=== PATIENT | male | born 1955 | race Hispanic/Latino ===

== ENCOUNTER 2018-02-17 07:41 | Observation (INO) | payer OTHER ==
[2018-02-17] MEDS ORDERED: SODIUM CHLORIDE FLUSH SYRINGE 10 ML IV PRN (11:31)
--- NOTE | 2018-02-17 11:44 | History and Physical Report ---
History of Present Illness Date of examination: 02/17/18 Date of admission: 02/17/18 08:21 Chief complaint: and pain History of present illness: 62 yo M with hx of DM presents to hospital as direct admission. The patient's PCP is Dr. Meyers who referred the patient to surgical services. The patient has been having difficulty moving his bowels and a fullness in his lower abdomen for several days. He also noted some blood in his urine and this prompted him to see his PCP. The patient had outpatient labs and a CT A/P. WBC was normal bit CT A/P showed a 4cm diverticular abscess. The patient states he has not had f/c, cp, sob, n/v. He has been having a few loose BMs since CT scan. His last cscope was in 2011 which was normal. Past History Past Medical History: diabetes Past Surgical History: Other (spinal fusion) Social history: no significant social history Family history: other (DM 1 in biological mother) Medications and Allergies Allergies Allergy/AdvReac Type Severity Reaction Status Date / Time No Known Allergies Allergy Unverified 02/17/18 08:21 Active Meds: Active Medications Acetaminophen (Tylenol) 650 mg PO Q4H PRN PRN Reason: Pain MILD(1-3)/Fever >100.5/DOLYE Dextrose/Sodium Chloride (D5/0.45ns) 1,000 mls @ 75 mls/hr IV DIRECT YOUNG Levofloxacin/Dextrose (Levaquin 500mg/100ml) 500 mg in 100 mls @ 100 mls/hr IV Q24HR YOUNG; Protocol Metronidazole (Flagyl 500 Mg/100 Ml) 500 mg in 100 mls @ 100 mls/hr IV Q8HR YOUNG Ondansetron HCl (Zofran) 4 mg IV Q8H PRN PRN Reason: Nausea And Vomiting Sodium Chloride (Sodium Chloride Flush Syringe 10 Ml) 10 ml IV BID YOUNG Sodium Chloride (Sodium Chloride Flush Syringe 10 Ml) 10 ml IV PRN PRN PRN Reason: LINE FLUSH Review of Systems All systems: negative (10 point ROS performed and negative except for that listed in HPI) Exam Vital Signs Pulse BP Pulse Ox 89 123/75 95 02/17/18 09:33 02/17/18 09:33 02/17/18 09:33 Narrative exam: Gen: AAOx3. NAD ENT: no scleral icterus or conjunctival pallor CV: S1, S2+ Resp: CTAB, no w/r/r Abd: soft, NT, ND Ext: no c/c/e Assessment and Plan 62 yo M with intraabdominal abscess secondary to diverticulitis PLan: 1. NPO - pt has been NPO since MN last night 2. gently IVF 3. strict glucose control, Accuchecks qACHS once pt is on a diet 4. IV abx - levaquin and flagyl 5. stat INR 6. IR consult - d/w Dr. Brennan who will review imaging and evaluate pt for CT guided drainage of abscess 7. nutrition consult 8. OOB/ambulate
[2018-02-17] MEDS ORDERED: D5/0.45NS 1,000 ML IV SCH (12:00)
[2018-02-17 12:29] LABS: INR 0.9 (0.87-1.13)
[2018-02-17] MEDS ORDERED: VERSED IV NR (14:00)
[2018-02-17] MEDS ORDERED: SUBLIMAZE IV NR (14:00)
--- NOTE | 2018-02-17 14:37 | Event Note ---
Date: 02/17/18 Patient was brought to the CT scanner for an attempted drain placement. The abscess is deep within the pelvis with multiple loops of overlying colon. A 15 cm needle was advanced and maneuvered past loops of colon to the margin of the lesion and a 5 ml sample of purulent fluid obtained however, the needle was not able to be advanced into the lesion sufficiently to allow a drainage catheter to be placed. The sample was sent for laboratory analysis and the patient will have a repeat CT scan ordered in 2 days to determine if the abscess has more fully organized and has become amenable to percutaneous drainage
--- NOTE | 2018-02-17 15:16 | Cat Scan Report ---
EXAM: PERCUTANEOUS ASPIRATION OF DIVERTICULAR ABSCESS CLINICAL INDICATION: PATIENT WITH DIVERTICULAR ABSCESS DATE: 02/17/2018 PROCEDURE: He following an examination of the risks, benefits and alternative; written informed consent was obtained. Patient was brought to the CT suite and placed in supine position on the CT gantry. Initial hospitality workers images of the abdomen was performed and an organizing abscess was identified at the rectosigmoid junction. An access site was chosen in the right lower quadrant. Note, the patient has multiple overlying loops of small bowel and colon. The patient was prepped and draped in the usual sterile fashion. One percent lidocaine was used for anesthesia. Using intermittent CT guidance, a 15 cm 18-gauge trocar needle was advanced to the margin of the abscess and 5 mL's of purulent fluid aspirated. Given the overlying bowel, the needle was not able to be directed more centrally into the abscess cavity. Ultimately, a percutaneous approach was abandoned and the needle removed and hemostasis achieved using and compression. A sterile dressing was applied. The patient tolerated the procedure well. There were no immediate post procedure complications. Conscious sedation was performed and a patent radiologic nursing. Continuous cardiopulmonary monitoring was utilized. IMPRESSION: 1) Percutaneous aspiration of diverticular abscess however, given the overlying loops of colon, percutaneous drainage catheter could not be placed. A sample of purulent fluid was sent for laboratory analysis.
[2018-02-17] MEDS: FLAGYL 500 MG/100 ML 500 MG/100 ML BAG IV SCH ×2 (15:40→21:09)
[2018-02-17] MEDS: LEVAQUIN 500MG/100ML 500 MG/100 ML BAG IV SCH (16:39)
[2018-02-17] MEDS: PRAVACHOL PO SCH (21:09)
[2018-02-17] MEDS: SODIUM CHLORIDE FLUSH SYRINGE 10 ML IV SCH (21:09)
[2018-02-17] MEDS: TYLENOL PO PRN (21:13)
[2018-02-18] MEDS: FLAGYL 500 MG/100 ML 500 MG/100 ML BAG IV SCH ×3 (05:42→21:24)
[2018-02-18] MEDS ORDERED: COLACE PO PRN (11:05)
[2018-02-18] MEDS: SODIUM CHLORIDE FLUSH SYRINGE 10 ML IV SCH ×2 (11:16→22:00)
[2018-02-18] MEDS: LEVAQUIN 500MG/100ML 500 MG/100 ML BAG IV SCH (11:24)
[2018-02-18] MEDS: ZESTRIL PO SCH (11:28)
[2018-02-18] MEDS ORDERED: MILK OF MAGNESIA PO ONE (11:48)
--- NOTE | 2018-02-18 11:51 | Progress Note ---
Assessment and Plan 62 yo M with colonic diverticular abscess 1. continue abx 2. soft diet, NPO p MN 3. S/P attempted IR drainage of diverticular abscess yesterday but not amenable to drain placement. Per IR note, will reattempt tomorrow. Will discuss with IR attending 4. OOB/ambulate 5. continue home meds, may take home diabetes meds Subjective Date of service: 02/18/18 Narrative: Pt seen and examined. c/o feeling of fullness due to incomplete bowel movement. He had one today. No n/v. Tolerating liquids. No f/c. Objective Vital Signs - 12hr 02/18/18 02/18/18 02/18/18 00:10 00:16 04:31 Temperature 98.0 F 98.0 F Pulse Rate 81 89 Respiratory 20 20 Rate Blood Pressure 126/72 109/62 O2 Sat by Pulse 95 93 Oximetry 02/18/18 02/18/18 02/18/18 07:25 11:28 11:33 Temperature 98.5 F Pulse Rate 86 84 Respiratory 18 Rate Blood Pressure 128/77 128/77 O2 Sat by Pulse 93 94 Oximetry - General physical appearance Narrative Exam: Gen: AAOx3. NAD CV: S1, S2+ Resp: even and unlabored Abd: soft, ND, NT. no r/r/g Ext: no c/c/e
[2018-02-18] MEDS ORDERED: D5/0.45NS 1,000 ML IV SCH (19:00)
[2018-02-18] MEDS: COLACE PO PRN (21:27)
[2018-02-18] MEDS: PRAVACHOL PO SCH (22:06)
[2018-02-19 05:02] LABS: Basophils # (Auto) 0.1 K/mm3 (0.0-0.1); Basophils % (Auto) 0.6 % (0.0-1.8); Eosinophils # (Auto) 0.1 K/mm3 (0.0-0.4); Eosinophils % (Auto) 1.7 % (0.0-4.3); Hematocrit 47.4 % (35.5-45.6); Hemoglobin 16.2 gm/dl (11.8-15.2); Lymphocytes # (Auto) 1.5 K/mm3 (1.2-5.4); Lymphocytes % (Auto) 17.8 % (13.4-35.0); Mean Corpuscular HGB Conc 34 % (32-34); Mean Corpuscular Hemoglobin 30 pg (28-32); Mean Corpuscular Volume 88 fl (84-94); Monocytes # (Auto) 0.6 K/mm3 (0.0-0.8); Monocytes % (Auto) 7.5 % (0.0-7.3); Platelet Count 180 K/mm3 (140-440); Red Blood Count 5.39 M/mm3 (3.65-5.03); Red Cell Distribution Width 14.3 % (13.2-15.2)
[2018-02-19] MEDS: FLAGYL 500 MG/100 ML 500 MG/100 ML BAG IV SCH ×3 (05:08→22:51)
[2018-02-19 05:18] LABS: BUN/Creatinine Ratio 26; Blood Urea Nitrogen 13 mg/dL (9-20); Calcium 8.5 mg/dL (8.4-10.2); Hemolysis Index 5
[2018-02-19] MEDS: SODIUM CHLORIDE FLUSH SYRINGE 10 ML IV SCH ×2 (10:00→22:52)
[2018-02-19] MEDS: ZESTRIL PO SCH (10:05)
[2018-02-19] MEDS: LEVAQUIN 500MG/100ML 500 MG/100 ML BAG IV SCH (12:35)
[2018-02-19] MEDS ORDERED: VERSED IV ONE ×2 (13:36→13:42)
[2018-02-19] MEDS ORDERED: SUBLIMAZE ONE ×2 (13:36→14:32)
[2018-02-19] MEDS ORDERED: SUBLIMAZE IV ONE ×2 (13:46→14:42)
--- NOTE | 2018-02-19 13:57 | Cat Scan Report ---
FINAL REPORT EXAM: CT ABDOMEN PELVIS W CON HISTORY: pelvic abscess TECHNIQUE: CT examination of the ABDOMEN after IV contrast CT examination of the PELVIS after IV contrast PRIORS: None. FINDINGS: Degenerative change in the regional skeleton. Degenerative subarticular cyst formation at both hips. Multilevel vertebral hemangiomas. Nonspecific diffusely decreased density of liver parenchyma may reflect fatty infiltration. No visualized focal liver lesion. Contracted gallbladder, normal-appearing adrenals, pancreas, and spleen. Intact normal caliber abdominal aorta with slight calcified atherosclerotic plaque. Normal caliber IVC. Normal-appearing kidneys and ureters. Very small fat containing umbilical hernia. Small fat containing bilateral inguinal hernia. No retroperitoneal adenopathy. No mesenteric mass. Normal-appearing stomach and duodenum. No small bowel distention in the abdomen and pelvis. No gross ascites, free air, or colonic distention. Normal-appearing cecum, terminal ileum, and appendix. Trace pelvic free fluid is likely reactive. There is moderate descending and sigmoid diverticulosis. Mural thickening is present in the distal sigmoid colon with adjacent fat stranding. This most compatible with diverticulitis at the rectosigmoid junction. There is a complex fluid collection posterior and superior to the inflamed sigmoid colon most compatible with diverticular abscess. It contains several septations but no definite air bubble. Maximum lesion dimension is 4.7 cm. The likely abscess abuts the anterior margin of the upper rectum. The slight prominence of iliac lymph nodes may be reactive. The In the pelvis, the urinary bladder appears normal as does the rectum. IMPRESSION: Findings most compatible with acute distal sigmoid diverticulitis. Complex fluid collection adjacent to the rectosigmoid junction most compatible with diverticular abscess Suggestion of hepatic steatosis Very small fat containing umbilical and inguinal hernias
--- NOTE | 2018-02-19 15:14 | Post Operative Note ---
Date of procedure: 02/19/18 Pre-op diagnosis: Diverticular abscess Post-op diagnosis: same Findings: 4 cm diverticular abscess Procedure: 1. Right transgluteal 8 Fr APD drain placed in the diverticular abscess Anesthesia: local (w/ conscious sedation) Surgeon: SUE DICKSON Estimated blood loss: minimal Condition: stable Disposition: floor
[2018-02-19] MEDS: TYLENOL PO PRN (17:50)
--- NOTE | 2018-02-19 18:43 | Progress Note ---
Assessment and Plan - Patient Problems (1) Colonic diverticular abscess Current Visit: Yes Status: Acute Plan to address problem: Pt stable. WBC normal. Discussed plan at this point. Main issue is to teach drain training. Once comfortable, will change to Po meds and d/c home. Questions answered. Pt appreciative of the time. Discussed teaching drain care with nursing staff. Time=15min Subjective Date of service: 02/19/18 Patient Reports: Positive: no new complaints Objective Vital Signs - 12hr 02/19/18 02/19/18 02/19/18 08:14 11:57 14:01 Temperature 97.4 F L 98.0 F Pulse Rate 82 75 Pulse Rate [ Intra-Procedure ] Pulse Rate [ Post-Procedure] Pulse Rate [Pre 97 H -Procedure] Respiratory 18 20 Rate Respiratory Rate [Intra- Procedure] Respiratory Rate [Post- Procedure] Respiratory 23 Rate [Pre- Procedure] Blood Pressure 144/75 Blood Pressure [Intra- Procedure] Blood Pressure 117/69 [Left] Blood Pressure [Post-Procedure ] Blood Pressure 157/94 [Pre-Procedure] O2 Sat by Pulse 95 97 Oximetry O2 Sat by Pulse Oximetry [ Intra-Procedure ] O2 Sat by Pulse Oximetry [Post -Procedure] O2 Sat by Pulse 96 Oximetry [Pre- Procedure] 02/19/18 02/19/18 02/19/18 14:09 14:12 14:17 Temperature Pulse Rate Pulse Rate [ 93 H 94 H Intra-Procedure ] Pulse Rate [ Post-Procedure] Pulse Rate [Pre 97 H -Procedure] Respiratory 18 Rate Respiratory 13 8 L Rate [Intra- Procedure] Respiratory Rate [Post- Procedure] Respiratory 21 Rate [Pre- Procedure] Blood Pressure Blood Pressure 135/84 138/81 [Intra- Procedure] Blood Pressure [Left] Blood Pressure [Post-Procedure ] Blood Pressure 150/91 [Pre-Procedure] O2 Sat by Pulse Oximetry O2 Sat by Pulse 92 91 Oximetry [ Intra-Procedure ] O2 Sat by Pulse Oximetry [Post -Procedure] O2 Sat by Pulse 94 Oximetry [Pre- Procedure] 02/19/18 02/19/18 02/19/18 14:22 14:27 14:32 Temperature Pulse Rate Pulse Rate [ 97 H 91 H 95 H Intra-Procedure ] Pulse Rate [ Post-Procedure] Pulse Rate [Pre -Procedure] Respiratory Rate Respiratory 18 17 20 Rate [Intra- Procedure] Respiratory Rate [Post- Procedure] Respiratory Rate [Pre- Procedure] Blood Pressure Blood Pressure 122/87 140/81 134/80 [Intra- Procedure] Blood Pressure [Left] Blood Pressure [Post-Procedure ] Blood Pressure [Pre-Procedure] O2 Sat by Pulse Oximetry O2 Sat by Pulse 91 94 97 Oximetry [ Intra-Procedure ] O2 Sat by Pulse Oximetry [Post -Procedure] O2 Sat by Pulse Oximetry [Pre- Procedure] 02/19/18 02/19/18 02/19/18 14:34 14:37 14:42 Temperature Pulse Rate Pulse Rate [ 96 H 97 H Intra-Procedure ] Pulse Rate [ Post-Procedure] Pulse Rate [Pre -Procedure] Respiratory 16 18 Rate Respiratory 20 21 Rate [Intra- Procedure] Respiratory Rate [Post- Procedure] Respiratory Rate [Pre- Procedure] Blood Pressure Blood Pressure 140/83 137/80 [Intra- Procedure] Blood Pressure [Left] Blood Pressure [Post-Procedure ] Blood Pressure [Pre-Procedure] O2 Sat by Pulse Oximetry O2 Sat by Pulse 96 97 Oximetry [ Intra-Procedure ] O2 Sat by Pulse Oximetry [Post -Procedure] O2 Sat by Pulse Oximetry [Pre- Procedure] 02/19/18 02/19/18 02/19/18 14:47 14:52 14:55 Temperature Pulse Rate Pulse Rate [ 95 H 94 H Intra-Procedure ] Pulse Rate [ 93 H Post-Procedure] Pulse Rate [Pre -Procedure] Respiratory Rate Respiratory 23 20 Rate [Intra- Procedure] Respiratory 22 Rate [Post- Procedure] Respiratory Rate [Pre- Procedure] Blood Pressure Blood Pressure 141/89 144/85 [Intra- Procedure] Blood Pressure [Left] Blood Pressure 144/80 [Post-Procedure ] Blood Pressure [Pre-Procedure] O2 Sat by Pulse Oximetry O2 Sat by Pulse 97 97 Oximetry [ Intra-Procedure ] O2 Sat by Pulse 94 Oximetry [Post -Procedure] O2 Sat by Pulse Oximetry [Pre- Procedure] 02/19/18 15:11 Temperature Pulse Rate Pulse Rate [ Intra-Procedure ] Pulse Rate [ 84 Post-Procedure] Pulse Rate [Pre -Procedure] Respiratory Rate Respiratory Rate [Intra- Procedure] Respiratory 18 Rate [Post- Procedure] Respiratory Rate [Pre- Procedure] Blood Pressure Blood Pressure [Intra- Procedure] Blood Pressure [Left] Blood Pressure 132/78 [Post-Procedure ] Blood Pressure [Pre-Procedure] O2 Sat by Pulse Oximetry O2 Sat by Pulse Oximetry [ Intra-Procedure ] O2 Sat by Pulse 93 Oximetry [Post -Procedure] O2 Sat by Pulse Oximetry [Pre- Procedure] - General physical appearance no distress, no pain - Respiratory normal expansion, normal respiratory effort - Abdomen soft, not tender, not guarding, not rigid, other (IR Drain in right upper buttock. bloody drainage - minimal) - Psychiatric oriented to time, oriented to person, oriented to place, speech is normal, memory intact - Labs 02/19/18 04:13 02/19/18 04:13 Diabetes panel 02/19/18 Range/Units 04:13 Sodium 139 (137-145) mmol/L Potassium 3.8 (3.6-5.0) mmol/L Chloride 101.4 (98-107) mmol/L Carbon Dioxide 25 (22-30) mmol/L BUN 13 (9-20) mg/dL Creatinine 0.5 L (0.8-1.5) mg/dL Glucose 214 H (75-100) mg/dL Calcium 8.5 (8.4-10.2) mg/dL Calcium panel 02/19/18 Range/Units 04:13 Calcium 8.5 (8.4-10.2) mg/dL Pituitary panel 02/19/18 Range/Units 04:13 Sodium 139 (137-145) mmol/L Potassium 3.8 (3.6-5.0) mmol/L Chloride 101.4 (98-107) mmol/L Carbon Dioxide 25 (22-30) mmol/L BUN 13 (9-20) mg/dL Creatinine 0.5 L (0.8-1.5) mg/dL Glucose 214 H (75-100) mg/dL Calcium 8.5 (8.4-10.2) mg/dL Adrenal panel 02/19/18 Range/Units 04:13 Sodium 139 (137-145) mmol/L Potassium 3.8 (3.6-5.0) mmol/L Chloride 101.4 (98-107) mmol/L Carbon Dioxide 25 (22-30) mmol/L BUN 13 (9-20) mg/dL Creatinine 0.5 L (0.8-1.5) mg/dL Glucose 214 H (75-100) mg/dL Calcium 8.5 (8.4-10.2) mg/dL - Imaging CT scan - pelvis: report reviewed, image reviewed
[2018-02-19] MEDS: ZOFRAN IV PRN (21:46)
[2018-02-19] MEDS: PRAVACHOL PO SCH (21:49)
[2018-02-20] MEDS: FLAGYL 500 MG/100 ML 500 MG/100 ML BAG IV SCH (05:01)
[2018-02-20] MEDS: ZOFRAN IV PRN (08:54)
[2018-02-20] MEDS: COLACE PO PRN (10:00)
[2018-02-20] MEDS: ZESTRIL PO SCH (10:00)
[2018-02-20] MEDS: LEVAQUIN 500MG/100ML 500 MG/100 ML BAG IV SCH (10:00)
--- NOTE | 2018-02-20 11:17 | Progress Note ---
Assessment and Plan - Patient Problems (1) Colonic diverticular abscess Current Visit: Yes Status: Acute Subjective Date of service: 02/20/18 Objective Vital Signs - 12hr 02/20/18 05:07 Temperature 98.3 F Pulse Rate 87 Respiratory 17 Rate Blood Pressure 121/75 [Left] O2 Sat by Pulse 93 Oximetry - Labs 02/19/18 04:13 02/19/18 04:13
[2018-02-20 16:53] VITALS: BP 129/75
--- NOTE | 2018-02-20 18:55 | Discharge Summary ---
Providers - Providers Date of Admission: 02/17/18 08:21 Date of discharge: 02/20/18 Attending physician: OLEG HAUSER DO 02/17/18 11:30 Consult to Interventional Radiology [CONS] Routine Consulting Provider: SUE MERINO Reason For Exam: diverticular abscess Place consult to:: DR. MERINO Notified:: OFFICE Phone number called:: [phone] Was contact made?: Yes If yes, spoke with:: MICHAELLE Time called:: 12:41 Comment:: CONSULT COMPLETED - TIGRE 02/17/18 11:31 Consult to Dietitian/Nutrition [CONS] Routine Physician Instructions: Reason For Exam: Reason for Consult: diverticulosis Primary care physician: FILOMENA MEYERS Hospitalization Condition: Stable Pertinent studies: CT Abd/Pel Procedures: IR guided drain placement Hospital course: Pt had an uneventful hospital course. He was a direct admit to the surgical service after discussing the case with the PCP (Dr. Meyers). IR was consulted for drain placement. Vitals and labs were normal prior to discharge. He was discharged in stable condition. Had some difficulty with PO intake, but he felt confident that he could resolve this issue at home. Disposition: DC-01 TO HOME OR SELFCARE Time spent for discharge: 30min - Discharge Diagnoses (1) Colonic diverticular abscess Status: Acute Core Measure Documentation - Palliative Care Palliative Care/ Comfort Measures: Not Applicable - Core Measures Any of the following diagnoses?: none - VTE Discharge Requirements Deep Vein Thrombosis/Pulmonary Embolism Present on Admission: No Exam - Constitutional Vitals: Temp Pulse Resp BP Pulse Ox 98.2 F 86 16 129/75 94 02/20/18 08:00 02/20/18 08:00 02/20/18 08:00 02/20/18 08:00 02/20/18 08:00 General appearance: Present: no acute distress, well-nourished - EENT Eyes: Present: EOM intact - Respiratory Respiratory effort: normal - Cardiovascular Rhythm: regular - Extremities Extremities: normal temperature, normal color - Abdominal General gastrointestinal: Present: soft, non-tender, non-distended - Psychiatric Psychiatric: appropriate mood/affect, intact judgment & insight - Additional findings Additional findings: Drain present in right upper buttock. Small amount of serosang drainage. - Allied Health Allied health notes reviewed: nursing Plan Activity: no restrictions Diet: regular Wound: other (keep occlusive dressing over drain site when showering. ) Follow up with: FILOMENA MEYERS MD [Primary Care Provider] - 7 Days OLEG HAUSER DO [Staff Physician] - 7 Days Prescriptions: Levofloxacin [Levaquin] 750 mg PO QDAY #10 tablet metroNIDAZOLE [Flagyl] 500 mg PO Q8HR #30 tablet Ondansetron [Zofran ODT TAB] 8 mg PO Q6H PRN #20 tab.rapdis PRN Reason: Nausea traMADol [Ultram 50 MG tab] 50 mg PO Q6HR PRN #20 tablet PRN Reason: Pain
--- NOTE | 2018-02-26 14:12 | Cat Scan Report ---
EXAM: CT guided right transgluteal 8 Fr drain placement into a diverticular abscess CLINICAL INDICATION: Diverticulitis with large diverticular abscess. DATE: 02/19/18 BASKET PERSON: SUE DICKSON MD MEDICATIONS: Conscious sedation using Versed and fentanyl was performed under guidance of radiologic nursing. Continuous cardiopulmonary monitoring was utilized. PROCEDURE: Following an explanation of the risks, benefits and alternatives; written informed consent was obtained. The patient was brought to the CT suite and placed in the prone position on the CT table. Auto Custom[employer] Painter CT was performed of the pelvis. After determining the appropriate site, the skin was infiltrated with lidocaine and a finder needle was placed. Intermittent CT was performed until the desired position was identified. The 18 gauge trocar needle was inserted into the diverticular abscess from a right transgluteal approach . Aspiration was performed and sent to the lab for analysis. J wire was then advanced through the needle and into the collection. The needle was exchanged for multiple dilators that were used to serially dilate over the wire. A 8 Fr APD drain was advanced over the wire and metal stiffener. The metal stiffener and wire were removed. Final CT scanning was performed. The pigtail was secured and aspirated until no more material could be aspirated. Sterile bandage was applied. The patient tolerated the procedure well. There were no immediate postprocedural complications. FINDINGS: 1. Initial CT demonstrates diverticular abscess. There is a satisfactory window for CT drainage from a right-sided transgluteal approach. 2. Intermittent CT demonstrates the 18 gauge needle was placed into the diverticular abscess. 3. Wire is coiled in the diverticular abscess. 4. Final CT documents placement of a 8 Fr drain in the diverticular abscess. 5. A total of approximately 20 mL of purulent material was aspirated through the drain and initial needle. IMPRESSION: Successful CT guided 8 [place] transgluteal drain placement in a diverticular abscess.
== END 2018-02-20 13:15 | disposition home or self-care (01) ==
LOC: 3B-SURG 07:41 → UNDOADMOB 07:41 → 3B-SURG 08:21
PROVIDERS: ADMIT Surgery; ATTEND Surgery
DX: K57.80 Diverticulitis of intestine, part unspecified, with perforation and abscess without bleeding (principal); E11.9 Type 2 diabetes mellitus without complications
CPT/HCPCS: 10160; 36415; 74177; 77012; 80048; 82962; 85025; 85610; 87116; 96365; 96366; 96367; 96375; 96376; A9270; C1769; G0378; G0379; J1956; J2250; J2405; J3010; Q9967

== ENCOUNTER 2018-03-22 08:26 | Outpatient (CLI) | payer OTHER ==
[2018-03-22 09:03] LABS: Blood Urea Nitrogen 17 mg/dL (9-20)
--- NOTE | 2018-03-23 09:09 | Cat Scan Report ---
CT ABDOMEN PELVIS WITH CONTRAST: HISTORY: Colonic diverticular abscess followup. COMPARISON: 02/19/18. TECHNIQUE: Helical CT in 1.25mm intervals following IV contrast. Sagittal and coronal reconstructions. FINDINGS: Lung bases: Normal. Liver: Normal. Biliary system: Normal. Pancreas: Normal. Spleen: Normal. Kidneys/ureters/bladder: Normal. Adrenal glands: Normal. Aorta: Normal. Intestines: The previously described diverticular abscess in the pelvis has resolved since the previous examination. Scattered diverticula in the descending and sigmoid colon are again noted. No new inflammatory changes, obstruction or obvious mass. Appendix: Normal. Ascites: None. Adenopathy: None. Musculoskeletal: Intact. Multiple bone hemangiomas are noted in the spine and left femoral head. IMPRESSION: The peridiverticular abscess has resolved 02/19/18.
== END 2018-03-22 08:27 | disposition home or self-care (01) ==
LOC: CT 08:26
PROVIDERS: ATTEND Internal Medicine Gastroenterology
DX: K57.20 Diverticulitis of large intestine with perforation and abscess without bleeding (principal); D18.09 Hemangioma of other sites
CPT/HCPCS: 36415; 74177; 82565; 84520; Q9967

== ENCOUNTER 2018-07-08 05:58 | Day surgery (SDC) | payer OTHER ==
[2018-07-08] MEDS ORDERED: WATER FOR IRRIG STERILE IR ONE (07:16)
[2018-07-08] MEDS ORDERED: WATER FOR IRRIG STERILE ONE (07:17)
[2018-07-08] MEDS ORDERED: DIPRIVAN 10 MG/ML IV ONE ×3 (07:37→10:59)
[2018-07-08] MEDS ORDERED: NACL 0.9% 1000 ML 1,000 ML IV SCH (08:00)
[2018-07-08] MEDS ORDERED: GI SPOT IJ ONE ×2 (08:05→08:07)
--- NOTE | 2018-07-08 08:28 | Anesthesia Consultation ---
Anesthesia Consult and Med Hx Date of service: 07/08/18 - Airway Anesthetic Teeth Evaluation: Chipped (left molar ) ROM Head & Neck: Inadequate (limited, hx acdf) Mental/Hyoid Distance: Adequate Mallampati Class: Class II Intubation Access Assessment: Possibly Difficult - Pulmonary Exam CTA: Yes - Cardiac Exam Cardiac Exam: RRR - Pre-Operative Health Status ASA Pre-Surgery Classification: ASA2 Proposed Anesthetic Plan: MAC - Pulmonary Hx Smoking: Yes (former ) - Endocrine Hx Non-Insulin Dependent Diabetes: Yes
--- NOTE | 2018-07-08 08:29 | Anesthesia Day of Surgery ---
Anesthesia Day of Surgery - Day of Surgery Patient Examined: Yes Patient H&P Reviewed: Yes Patient is NPO: Yes
--- NOTE | 2018-07-08 08:34 | Short Stay Summary ---
Short Stay Documentation - Allergies and Medications Current Medications: Allergies No Known Allergies Allergy (Verified 07/07/18 10:01) Home Medications Medication Instructions Recorded Confirmed Last Taken Type Empagliflozin [Jardiance] 25 mg PO QDAY 02/17/18 07/08/18 07/06/18 History Simvastatin [Zocor TAB] 80 mg PO QHS 02/17/18 07/07/18 07/07/18 History Sitagliptin Phos/Metformin HCl 1 each PO BID 02/17/18 07/08/18 07/06/18 History [Janumet 50-1,000 mg Tablet] traMADol [Ultram 50 MG tab] 50 mg PO Q6HR PRN #20 tablet 02/20/18 07/07/18 Unknown Rx Active Medications Sodium Chloride (Nacl 0.9% 1000 Ml) 1,000 mls @ 50 mls/hr IV DIRECT YOUNG Last Admin: 07/08/18 07:28 Dose: 50 mls/hr - Brief post op/procedure progress note Date of procedure: 07/08/18 Pre-op diagnosis: 1. Colon cancer screening 2. Diverticulosis 3. H/o diverticular abscess Post-op diagnosis: same (1. Ulcerated mass in sigmoid colon 2. Colon mass 3. Diverticulosis coli 4. Internal hemorrhoids) Procedure: Colonoscopy with snare polypectomy, cold biopsy polypectomy, cold biopsy and tattooing Anesthesia: MAC Findings: as above Surgeon: FRANKY DAHL Estimated blood loss: none Pathology: list (1, Transverse colon polyps 2. Sigmoid mass) Specimen disposition: to lab Condition: stable - Disposition Condition at discharge: Stable Disposition: DC-01 TO HOME OR SELFCARE Short Stay Discharge Plan Activity: no restrictions Weight Bearing Status: Full Weight Bearing Diet: regular, low salt Follow up with: FILOMENA GARCIAS MD [Primary Care Provider] - 7 Days
[2018-07-08 08:56] VITALS: BP 153/80
== END 2018-07-08 05:59 | disposition home or self-care (01) ==
LOC: GIO 05:58
PROVIDERS: ATTEND Internal Medicine Gastroenterology
DX: Z12.11 Encounter for screening for malignant neoplasm of colon (principal); D12.3 Benign neoplasm of transverse colon; C18.7 Malignant neoplasm of sigmoid colon; K57.30 Diverticulosis of large intestine without perforation or abscess without bleeding; K63.5 Polyp of colon; K64.8 Other hemorrhoids; I10 Essential (primary) hypertension; E11.9 Type 2 diabetes mellitus without complications; Z98.890 Other specified postprocedural states; Z83.3 Family history of diabetes mellitus; Z82.49 Family history of ischemic heart disease and other diseases of the circulatory system; Z79.899 Other long term (current) drug therapy; Z87.891 Personal history of nicotine dependence
CPT/HCPCS: 45380; 45381; 45385; 82962; 88305; J2704; J7030